=== PATIENT | male | born 1965 | race African-American/Black ===

== ENCOUNTER 2023-04-05 00:36 | Inpatient (IN) | payer OTHER ==
[2023-04-05 02:13] VITALS: BMI 29.7
[2023-04-05] MEDS ORDERED: LOPERAMIDE HCL 2 MG CAPSULE PO PRN (02:14)
[2023-04-05] MEDS ORDERED: BENZOCAINE/MENTHOL (CHLORASEPTIC ) LOZENGE MM PRN (02:14)
[2023-04-05] MEDS ORDERED: NALOXONE HCL (KLOXXADO) 8 MG SPRAY NS PRN (02:14)
[2023-04-05] MEDS ORDERED: NALOXONE HCL 0.4 MG/ML VIAL IM PRN (02:14)
[2023-04-05] MEDS ORDERED: DICYCLOMINE HCL 10 MG CAPSULE PO PRN (02:14)
[2023-04-05] MEDS ORDERED: BISMUTH SUBSALICYLATE 524 MG/30 ML PO PRN (02:14)
[2023-04-05] MEDS ORDERED: BENZONATATE 200 MG CAPSULE PO PRN (02:14)
[2023-04-05] MEDS ORDERED: ONDANSETRON *ODT* 4 MG TABLET SL PRN (02:14)
[2023-04-05] MEDS ORDERED: MAGNESIUM HYDROX 2400MG/30ML ORAL SUSPENSION 30 ML CUP PO PRN (02:14)
[2023-04-05] MEDS ORDERED: ACETAMINOPHEN 325 MG TABLET (FP) PO PRN (02:14)
[2023-04-05] MEDS ORDERED: MAG HYDROX/AL HYDROX/SIMETH 30 ML UNIT-DOSE CUP PO PRN (02:14)
[2023-04-05] MEDS ORDERED: guaiFENesin 600 MG TABLET.ER (FP) PO PRN (02:14)
[2023-04-05] MEDS ORDERED: POLYETHYLENE GLYCOL (HEALTHYLAX) 3350 17 GM PACKET PO PRN (02:14)
[2023-04-05] MEDS ORDERED: NICOTINE POLACRILEX 2 MG GUM BUC PRN (02:14)
[2023-04-05] MEDS ORDERED: IBUPROFEN 600 MG TABLET (FP) PO PRN (02:14)
[2023-04-05] MEDS: hydrOXYzine PAMOATE 25 MG CAPSULE (FP) PO PRN ×2 (03:10→22:30)
[2023-04-05] MEDS: METHOCARBAMOL 500 MG TABLET PO PRN ×3 (03:10→22:30)
[2023-04-05] MEDS ORDERED: NICOTINE 21 MG/24 HOURS TOPICAL PATCH TD SCH (10:00)
[2023-04-05] MEDS ORDERED: NICOTINE 14 MG/24 HOURS TOPICAL PATCH TD SCH (10:00)
[2023-04-05] MEDS: PRENATAL VITAMINS W/ FOLIC ACID TABLET (FP) PO SCH (10:12)
[2023-04-05] MEDS ORDERED: MELATONIN 5 MG TABLETS PO SCH (22:00)
[2023-04-05] MEDS ORDERED: THIAMINE HCL 100 MG TABLET (FP) PO SCH (22:00)
[2023-04-05] MEDS: IBUPROFEN 400 MG TABLET (FP) PO PRN (22:30)
[2023-04-06 06:54] VITALS: BP 155/81; PULSE 61; RESP 18; TEMP 98
[2023-04-06] MEDS: METHOCARBAMOL 500 MG TABLET PO PRN (07:55)
[2023-04-06] MEDS: IBUPROFEN 400 MG TABLET (FP) PO PRN (07:55)
[2023-04-06] MEDS: PRENATAL VITAMINS W/ FOLIC ACID TABLET (FP) PO SCH (09:05)
[2023-04-06 11:36] LABS: POTASSIUM 4.8 mmol/L (3.5-5.1)
[2023-04-06 11:40] LABS: HEMATOCRIT 36.2 % (35.4-49); HEMOGLOBIN 11.7 GM/dL (11.7-16.9); MCH 29.3 pg (25.7-33.7); MCHC 32.3 g/dl (32.0-35.9); MEAN CELL VOLUME 90.5 fl (80-96); MEAN PLT VOLUME 8.5 fl (7.5-11.1); PLATELET COUNT 236 10^3/uL (134-434); RDW 13.4 % (11.9-15.9); WHITE BLOOD COUNT 4.5 K/mm3 (4.0-10.0)
[2023-04-06 11:41] LABS: CALCIUM 8.3 mg/dL (8.5-10.1)
[2023-04-06 11:42] LABS: BLOOD UREA NITROGEN 9.1 mg/dL (7-18)
[2023-04-06 11:45] LABS: CREATININE 0.7 mg/dL (0.55-1.3)
[2023-04-06 11:46] LABS: TOT PROT 5.6 g/dl (6.4-8.2)
== END 2023-04-06 09:12 | disposition home or self-care (01) | DRG 773 ==
LOC: YASAS 00:36 → Y3N 02:49
PROVIDERS: ADMIT Allergy & Immunology; ATTEND Allergy & Immunology
PROC: HZ2ZZZZ Detoxification Services for Substance Abuse Treatment (ICD-10-PCS; principal; 2023-04-05)
DX: F11.20 Opioid dependence, uncomplicated (principal); F14.20 Cocaine dependence, uncomplicated; F17.210 Nicotine dependence, cigarettes, uncomplicated
CPT/HCPCS: 36415; 80053; 80307; 85027; 86780; 87635; 87811; 93005; 93010